=== PATIENT | female | born 1935 | race Caucasian/White ===

== ENCOUNTER 2016-06-24 09:32 | Emergency (ER) | payer MEDICARE, BC ==
[2016-06-24] MEDS ORDERED: TDaP 0.5 ML VIAL IM.VACC ONE (10:23)
== END 2016-06-24 11:08 | disposition home or self-care (01) ==
LOC: ER 09:32
DX: S01.01XA Laceration without foreign body of scalp, initial encounter (principal); W19.XXXA Unspecified fall, initial encounter; Y92.009 Unspecified place in unspecified non-institutional (private) residence as the place of occurrence of the external cause; Z23 Encounter for immunization; G20 Parkinson's disease; M19.90 Unspecified osteoarthritis, unspecified site; I10 Essential (primary) hypertension
CPT/HCPCS: 70450; 90471